=== PATIENT | female | born 1950 | race Caucasian/White ===

== ENCOUNTER 2016-09-22 10:01 | Emergency (ER) | payer OTHER ==
[~2016-09-22] VITALS: Ht 167.6 cm; Wt 86.4 kg
[~2016-09-22 10:01] MED LIST: AMLODIPINE BESYL5 MG PO; ASPIR-LOW81 MG PO; ASPIRIN81 M2 PO; CLEOCIN300 MG PO; LIPITOR20 MG PO; LISINOPRIL5 MG PO; NOHOMEMEDS; NORVASC5 MG PO; PROVENTIL HFA6.7 GM IH
[2016-09-22 12:00] LABS: MCH 27.4 PG (29.0-34.0); MCHC 32.1 G/DL (30.0-36.0); MCV 85.4 FL (83-99); MEAN PLAT.VOLUME 10.3 uM^3 (9.5-12.4); PLATELET COUNT 359 K/uL (156-360); RBC DIS.WIDTH-CV 13.7 % (11.8-14.6); RED BLOOD COUNT 5.62 M/uL (3.80-5.20); WHITE BLOOD COUNT 12.3 K/uL (4.1-10.2)
[2016-09-22 12:50] LABS: CHLORIDE 108 mEq/L (99-109); POTASSIUM 4.2 mEq/L (3.7-5.4); SODIUM 143 mEq/L (136-147)
[2016-09-22 12:52] LABS: GLUCOSE 102 mg/dL (70-99)
[2016-09-22 12:53] LABS: ANION GAP 10 MEQ/L (2-14)
[2016-09-22 12:56] LABS: GFR ESTIMATE (CALCULATED) > 59 mL/min/; UREA NITROGEN (BUN) 8 mg/dL (9-23)
[2016-09-22] MEDS ORDERED: LEVAQUIN750 MG PO (13:09)
[2016-09-22] MEDS ORDERED: PREDNISONE20 MG PO (13:09)
[2016-09-22 13:25] VITALS: BP 164/84
== END 2016-09-22 13:34 | disposition home or self-care (01) ==
LOC: EME 10:01
DX: J20.9 Acute bronchitis, unspecified (principal); I10 Essential (primary) hypertension; E78.5 Hyperlipidemia, unspecified; Z79.82 Long term (current) use of aspirin; F17.200 Nicotine dependence, unspecified, uncomplicated
CPT/HCPCS: 71020; 80048; 85027; 94640; 99281; 99284; J7512